=== PATIENT | male | born 1970 | race Caucasian/White ===

== ENCOUNTER 2017-04-27 17:56 | Emergency (ER) | payer OTHER, MEDICAID ==
[~2017-04-27 17:56] MED LIST: BACT800T5 PO
--- NOTE | 2017-04-27 18:51 | PD ---
HPI Time Seen by Provider: 18:51 PFSH Past Medical History Asthma: Yes Cancer: No Cardiovascular Problems: No Diminished Hearing: No Endocrine: No Genitourinary: No Immune Disorder: No Musculoskeletal: No Neurologic: No Psychiatric: No Respiratory: Yes (ASTHMA) Sickle Cell Disease: No Past Surgical History Oral Surgery: Yes (CLEFT PALATE) Other Surgery: Yes (CLEFT PALATE) Social History Alcohol Use: Yes (OCCASIONALLY ) Tobacco Use: Yes (1PPD) Substance Use: Yes (NOT FOR 2MONTHS ) Allergies-Medications (Allergen,Severity, Reaction): Coded Allergies: *MDRO Multi-Drug Resistant Organism (Verified Adverse Reaction, Unknown, 10/29/16) 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
[2017-04-28] MEDS ORDERED: CYCL5TAB PO (15:23)
[2017-04-28] MEDS ORDERED: IBUP-232 PO (15:23)
== END 2017-04-27 18:30 | disposition left against medical advice (07) ==
LOC: NEDAMB 17:56
DX: Z04.1 Encounter for examination and observation following transport accident (principal)
CPT/HCPCS: 99281

== ENCOUNTER 2017-04-28 12:55 | Emergency (ER) | payer OTHER, MEDICAID ==
[~2017-04-28] VITALS: Ht 188 cm; Wt 77.0 kg
[2017-04-28 12:56] VITALS: BP 124/77; PULSE 72; RESP 20; TEMP 98.2; O2SAT 98
[2017-04-28] MEDS ORDERED: IBUPROFEN 800 MG TAB PO ONE (13:30)
[2017-04-28] MEDS ORDERED: CYCLOBENZAPRINE HCL 10 MG TAB PO ONE (13:30)
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
[2017-04-28] MEDS ORDERED: IBUP-232 PO (15:23)
[2017-04-28] MEDS ORDERED: CYCL5TAB PO (15:23)
== END 2017-04-28 15:43 | disposition home or self-care (01) ==
LOC: NEPD 12:55
DX: S13.4XXA Sprain of ligaments of cervical spine, initial encounter (principal); V43.62XA Car passenger injured in collision with other type car in traffic accident, initial encounter; Y93.89 Activity, other specified; Y92.410 Unspecified street and highway as the place of occurrence of the external cause; R07.9 Chest pain, unspecified
CPT/HCPCS: 71020; 72050; 99284; L0150

== ENCOUNTER 2017-06-22 15:07 | Emergency (ER) | payer MEDICAID ==
[~2017-06-22] VITALS: Ht 188 cm; Wt 75.0 kg
[~2017-06-22 15:07] MED LIST changes: -BACT800T5 PO; +CYCL5TAB PO; +IBUP-232 PO
[2017-06-22 15:11] VITALS: BP 132/64; PULSE 96; RESP 14; TEMP 99.2; O2SAT 99
--- NOTE | 2017-06-22 15:21 | PD ---
HPI Chief Complaint: ENT Complaint Time Seen by Provider: 15:21 Travel History International Travel<30 days: No Contact w/Intl Traveler<30days: No Traveled to known affect area: No History of Present Illness HPI 46- year old male presents to the ED complaining of left ear pain for the past week. He reports that he tried some Tylenol for the past few days, but had no relief of the pain. He denies any fevers, chills, night sweats, nausea, vomiting , diarrhea, headache, rhinitis, or cough. He denies any sick contacts. PFSH Past Medical History Asthma: Yes Cancer: No Cardiovascular Problems: No Diminished Hearing: No Endocrine: No Genitourinary: No Immune Disorder: No Musculoskeletal: No Neurologic: No Psychiatric: No Respiratory: Yes (ASTHMA) Sickle Cell Disease: No Past Surgical History Oral Surgery: Yes (CLEFT PALATE) Other Surgery: Yes (CLEFT PALATE) Social History Alcohol Use: Yes Tobacco Use: Yes Substance Use: No Allergies-Medications (Allergen,Severity, Reaction): Coded Allergies: *MDRO Multi-Drug Resistant Organism (Verified Adverse Reaction, Unknown, ) MRSA arm wound 09/2015 Reported Meds & Prescriptions Reported Meds & Active Scripts Active Ofloxacin Otic Drops 0.3 % Drops 10 Drop LEFT EAR DAILY Flexeril (Cyclobenzaprine HCl) 5 Mg Tab 5 Mg PO TID Ibuprofen 600 Mg Tab 600 Mg PO Q6H PRN Review of Systems General / Constitutional: No: Fever, Chills, Weight Gain, Weight Loss, Other Eyes: No: Diploplia, Blurred Vision, Photophobia, Drainage, Redness, Foreign Body Sensation, Pain, Tearing, Blind Spots, Visual changes, Blindness, Other HENT: Positive: Earache (left ), No: Headaches, Vertigo, Lightheadedness, Sore Throat, Rhinitis, Rhinorrhea, Congestion, Nosebleed, Neck Stiffness, Neck Pain, Masses, Gingival Bleeding, Dental Difficulties, Ear Discharge, Other Cardiovascular: No: Chest Pain or Discomfort, Palpitations, Irregular Rhythm, Tachycardia, Diaphoresis, Syncope, Dyspnea on exertion, Varicosities, Edema, Cyanosis, Varicosities, Phlebitis, Claudication, Other Respiratory: No: Cough, Shortness of Breath, Wheezing, Sneezing, Orthopnea, Hemoptysis, Stridor, Night Sweats, Pleuritic Pain, Other Gastrointestinal: No: Nausea, Vomiting, Diarrhea, Abdominal Pain, Hematemesis, Hematochezia, Constipation, Changes in Bowel Habits, Indigestion, Dysphagia, Loss of Appetite, Other Genitourinary: No: Urgency, Frequency, Dysuria, Nocturia, Hematuria, Decreased Urinary Output, Oliguria, Hesitancy, Dribbling, Incontinence, Pelvic Pain, Flank Pain, Dyspareunia, Discharge, Dysmenorrhea, Menorrhagia, Metorrhagia, Vaginal Bleeding, Other Musculoskeletal: No: Myalgias, Arthralgias, Limited ROM, Weakness, Cramping, Edema, Pain, Atrophy, Other Skin: No Rash, No Itching, No Dryness, No Lumps, No Hives, No Change in Pigmentation, No Change in nails, No Alopecia, No Lesions, No Breast Lumps, No Breast Tenderness, No Breast Swelling, No Other Neurologic: No: Weakness, Dizziness, Syncope, Focal Abnormalities, Coordination Problem, Tremor, Ataxia, Headache, Change in Mentation, Slurred Speech, Paresthesia, Incontinence, Seizures, Sensory Disturbance, Other Physical Exam Narrative GENERAL: SKIN: Warm and dry. HEAD: Atraumatic. Normocephalic. EYES: Pupils equal and round. No scleral icterus. No injection or drainage. ENT: Purulent discharge in left tympanic membrane with mild erythema. No nasal bleeding or discharge. Mucous membranes pink and moist. NECK: Trachea midline. No JVD. CARDIOVASCULAR: Regular rate and rhythm. RESPIRATORY: No accessory muscle use. Clear to auscultation. Breath sounds equal bilaterally. GASTROINTESTINAL: Abdomen soft, non-tender, nondistended. MUSCULOSKELETAL: Extremities without clubbing, cyanosis, or edema. No obvious deformities. NEUROLOGICAL: Awake and alert. No obvious cranial nerve deficits. Motor grossly within normal limits. Five out of 5 muscle strength in the arms and legs. Normal speech. PSYCHIATRIC: Appropriate mood and affect; insight and judgment normal. Data Data Last Documented VS Vital Signs Date Time Temp Pulse Resp B/P Pulse Ox O2 Delivery O2 Flow Rate FiO2 06/22/17 15:11 99.2 96 14 132/64 99 MDM Medical Decision Making Medical Screen Exam Complete: Yes Emergency Medical Condition: Yes Medical Record Reviewed: Yes Differential Diagnosis Otitis Externa Otalgia Otitis Media Narrative Course 46-year-old male here with complaints of left ear pain. On examination patient appears to have left otitis externa. We have discussed swimming and he has been doing this for the past week plus. I recommend no swimming for the next week or excessive moisture. I provided him some eardrops for outpatient treatment. I recommend Tylenol or Motrin for pain. Patient verbalized understanding of instructions, questions were answered, and thanked me for their care. I advised them if their condition worsens, please return to the nearest emergency room for further care. Diagnosis Primary Impression: Otitis externa Qualified Code: H60.332 - Acute swimmer's ear of left side Patient Instructions: General Instructions Additional Instructions: No swimming for one week. Avoid excessive moisture to your years. Do not use objects such as Q-tips in your ears. Try [id number] Tylenol or Motrin as needed for pain. Please return to emergency department if your symptoms return or worsen. Follow up with your primary care provider. Take medications as prescribed. Med/Other Pt SpecificInfo: Prescription(s) given Scripts Ofloxacin Otic Drops 0.3 % Drops10 Drop LEFT EAR DAILY #1 BOTTLE Ref 0 Prov:Fahad Mcqueen MD 06/22/17 Condition: Stable Vielka Moody Jun 22, 2017 15:21
[2017-06-22] MEDS ORDERED: OFLO0.3D9 LEFT EAR (15:36)
== END 2017-06-22 15:49 | disposition home or self-care (01) ==
LOC: NEPK 15:07
DX: H60.92 Unspecified otitis externa, left ear (principal); J45.909 Unspecified asthma, uncomplicated; Z72.0 Tobacco use; Z79.899 Other long term (current) drug therapy; Z79.1 Long term (current) use of non-steroidal anti-inflammatories (NSAID)
CPT/HCPCS: 99283

== ENCOUNTER 2017-09-18 19:56 | Emergency (ER) | payer MEDICAID ==
[~2017-09-18 19:56] MED LIST changes: +OFLO0.3D9 LEFT EAR
[2017-09-18 19:58] VITALS: BP 130/78; PULSE 81; RESP 16; TEMP 98.2; O2SAT 99
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
[2017-09-18] MEDS ORDERED: IBUP-232 PO (22:33)
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
[2017-09-18 23:20] VITALS: BP 139/89
== END 2017-09-18 23:21 | disposition home or self-care (01) ==
LOC: NEPD 19:56
DX: S09.90XA Unspecified injury of head, initial encounter (principal); S00.83XA Contusion of other part of head, initial encounter; S10.93XA Contusion of unspecified part of neck, initial encounter; J32.0 Chronic maxillary sinusitis; R11.0 Nausea; J45.909 Unspecified asthma, uncomplicated; Y04.8XXA Assault by other bodily force, initial encounter; Z72.0 Tobacco use
CPT/HCPCS: 70450; 70486; 72125; 99285

== ENCOUNTER 2017-11-19 18:21 | Emergency (ER) | payer MEDICAID ==
[2017-11-19 18:21] VITALS: BP 130/73; PULSE 93; RESP 14; TEMP 99.4; O2SAT 96
[~2017-11-19 18:21] MED LIST changes: -CYCL5TAB PO; -OFLO0.3D9 LEFT EAR
[2017-11-19] MEDS ORDERED: VENTAER INH (18:34)
--- NOTE | 2017-11-19 18:35 | PD ---
HPI Chief Complaint: Medication Refill Request Time Seen by Provider: 18:30 Travel History International Travel<30 days: No Contact w/Intl Traveler<30days: No Traveled to known affect area: No History of Present Illness HPI Patient is a 46-year-old male presenting to emergency department for a refill of his albuterol inhaler. He states he was sent here by his primary doctor. He thinks that there was some miscommunication with his primary doctor and that' s why he was sent in. He is not having any asthma symptoms. He denies any chest pain, shortness of breath, wheezing, fever, chills, headache. He denies any other complaints at this time. 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 Rest come to play in no acute distress. SKIN: Warm and dry. HEAD: Normocephalic. EYES: No scleral icterus. No injection or drainage. NECK: Supple, trachea midline. No JVD or lymphadenopathy. CARDIOVASCULAR: Regular rate RESPIRATORY: No accessory muscle use. Data Data Last Documented VS Vital Signs Date Time Temp Pulse Resp B/P (MAP) Pulse Ox O2 Delivery O2 Flow Rate FiO2 11/19/17 18:41 11/19/17 18:21 99.4 93 14 96 Orders Orders Ed Discharge Order (11/19/17 18:36) MDM Medical Decision Making Medical Screen Exam Complete: Yes Emergency Medical Condition: Yes Interpretation(s) Vital Signs Date Time Temp Pulse Resp B/P (MAP) Pulse Ox O2 Delivery O2 Flow Rate FiO2 11/19/17 18:41 11/19/17 18:21 99.4 93 14 130/73 (92) 96 Differential Diagnosis Medication refill versus asthma exacerbation versus respiratory distress versus other Narrative Course Patient presented for refill of his albuterol inhaler. Patient's vital signs are stable, he has no other complaints at this time. She was given a refill of his Ventolin inhaler. He was encouraged to follow up with his primary doctor. He was further encouraged to avoid tobacco use. Additionally patient can return to emergency department for any new or worsening symptoms. Patient verbalized understanding of discharge instructions. Patient is stable for discharge. Diagnosis Primary Impression: Medication refill Referrals: Primary Care Physician call for appointment Patient Instructions: Asthma (ED), General Instructions Additional Instructions: Follow up with your PCP Avoid tobacco use Return to the ED for any new or worsening symptoms Med/Other Pt SpecificInfo: Prescription(s) given Scripts Albuterol 18 GM Inh (Ventolin Hfa 18 GM Inh) 90 Mcg/Act Aer 2 PUFF INH Q4-6H Y for SHORTNESS OF BREATH, #1 INHALER 0 Refills Prov: Yu Johnston 11/19/17 Disposition: 01 DISCHARGE HOME Condition: Stable Yu Johnston Nov 19, 2017 18:35
== END 2017-11-19 18:41 | disposition home or self-care (01) ==
LOC: NED 18:21
DX: Z76.0 Encounter for issue of repeat prescription (principal); J45.909 Unspecified asthma, uncomplicated; Z72.0 Tobacco use; Z79.51 Long term (current) use of inhaled steroids
CPT/HCPCS: 99281